=== PATIENT | female | born 1980 | race Caucasian/White ===

== ENCOUNTER 2017-04-19 12:57 | Inpatient (IN) ==
[2017-04-19] MEDS ORDERED: KETOROLAC 60 MG/2 ML VIAL IM STA (14:21)
[2017-04-19] MEDS ORDERED: KETOROLAC 60 MG/2 ML VIAL IM ONE (14:22)
[2017-04-19] MEDS ORDERED: IBUPROFEN 400 MG TABLET ONE (14:49)
[2017-04-19] MEDS ORDERED: HydrOXYzine PAMOATE 25 MG CAPSULE ONE (14:49)
[2017-04-19] MEDS ORDERED: IBUPROFEN 800 MG TABLET PO STA (14:53)
[2017-04-19] MEDS ORDERED: HydrOXYzine PAMOATE 25 MG CAPSULE PO STA (14:53)
[2017-04-19] MEDS ORDERED: BISACODYL 10 MG SUPP RECTAL PRN (15:29)
[2017-04-19] MEDS ORDERED: MAGNESIUM HYDROXIDE SUSP 30 ML UDCUP PO PRN (15:29)
[2017-04-19] MEDS ORDERED: ACETAMINOPHEN 325 MG TABLET PO PRN (15:29)
[2017-04-19] MEDS ORDERED: ONDANSETRON 4 MG/2 ML VIAL IV PRN (15:29)
[2017-04-19] MEDS ORDERED: KETOROLAC 60 MG/2 ML VIAL IM PRN (15:34)
[2017-04-19 15:44] LABS: Barbiturates Screen,Urine Negative (Negative); Benzodiazepines Screen,Urine Positive (Negative); Cannabinoid Screen,Urine Negative (Negative); Opiate Screen,Urine Positive (Negative); Phencyclidine Screen,Urine Negative (Negative)
[2017-04-19] MEDS: LACTATED RINGERS 75 ML IV SCH (17:30)
[2017-04-19] MEDS ORDERED: LACTATED RINGERS 1,000 ML IV SCH (17:53)
[2017-04-19] MEDS: KETOROLAC 30 MG/1 ML VIAL IV PRN (19:54)
[2017-04-19 20:03] LABS: Basophils % 0.1 % (0.0-0.8); Eosinophils % 0.1 % (0.00-10.9); Hematocrit 44.9 VOL% (35.7-47.0); Hemoglobin 15.6 GM/DL (12.0-16.0); Immature Granulocytes % 0.3 %; Immature Granulocytes Absolute 0.05 #; Lymphocytes # 1.7 10*3/uL (1.4-4.0); Lymphocytes % 11.7 % (21.3-54.2); Mean Corpuscular HGB Conc 34.7 GM/DL (32-36); Mean Corpuscular Hemoglobin 32 PG (27-34); Mean Corpuscular Volume 91.6 FL (87-102); Mean Platelet Volume 8.8 FL (9.6-12.0); Monocytes # 0.4 10*3/uL (0.11-0.8); Neutrophils # 12.2 10*3/uL (1.4-7.4); Neutrophils % 84.8 % (38.7-73.9); Platelet Count 412 T/CUMM (130-400); Red Cell Distribution Width 13.6 % (9.3-17.3); White Blood Count 14.4 T/CUMM (4-12)
[2017-04-19] MEDS: DOCUSATE SODIUM 100 MG CAPSULE PO SCH (20:03)
[2017-04-19 20:16] LABS: INR 0.9
[2017-04-19 20:24] LABS: Albumin 3.9 G/DL (3.4-5.0); Bilirubin,Total 0.6 MG/DL (0.2-1.0); Calcium 9.2 MG/DL (8.5-10.1); Osmolality,Calculated 266.5 MOS/KG (273-304); Total Protein 7.7 G/DL (6.4-8.3)
[2017-04-19] MEDS: IBUPROFEN 800 MG TABLET PO PRN (21:14)
[2017-04-20] MEDS: KETOROLAC 30 MG/1 ML VIAL IV PRN ×2 (01:58→08:10)
[2017-04-20] MEDS: LACTATED RINGERS 1,000 ML IV SCH ×3 (03:02→17:49)
[2017-04-20] MEDS: PANTOPRAZOLE 40 MG VIAL IV SCH (08:14)
[2017-04-20] MEDS: DOCUSATE SODIUM 100 MG CAPSULE PO SCH ×2 (10:24→20:22)
[2017-04-20] MEDS ORDERED: ALBUTEROL 2.5 MG/3 ML NEB RESP TX ONE (10:57)
[2017-04-20] MEDS ORDERED: BACITRACIN 50,000 UNIT VIAL ONE (12:25)
[2017-04-20] MEDS ORDERED: POLYMYXIN B 500,000 UNIT VIAL ONE (12:25)
[2017-04-20] MEDS ORDERED: TISSUE ADHESIVE 1 EACH APPLICATOR TOP ONE (13:00)
[2017-04-20] MEDS ORDERED: MEPERIDINE 25 MG/1 ML VIAL ONE (13:19)
[2017-04-20] MEDS ORDERED: HYDROmorphone 2 MG/1 ML VIAL ONE ×2 (13:19→13:59)
[2017-04-20] MEDS ORDERED: PROMETHAZINE 25 MG/1 ML VIAL ONE (13:20)
[2017-04-20] MEDS ORDERED: MEPERIDINE 25 MG/1 ML VIAL IV ONE ×2 (13:20→13:25)
[2017-04-20] MEDS ORDERED: PROMETHAZINE INJ 12.5 MG in SODIUM CHLORIDE 0.9% 50 ML IV ONE (13:28)
[2017-04-20] MEDS ORDERED: DESFLURANE 1 UNIT/15 MINUTE INH ONE (13:59)
[2017-04-20] MEDS ORDERED: PROPOFOL 200 MG/20 ML VIAL IV ONE (13:59)
[2017-04-20] MEDS ORDERED: SEVOFLURANE 1 UNIT/15 MINUTE INH ONE (13:59)
[2017-04-20] MEDS ORDERED: DEXAMETHASONE 10 MG/1 ML VIAL ONE (14:00)
[2017-04-20] MEDS ORDERED: GLYCOPYRROLATE 0.4 MG/2 ML VIAL ONE (14:00)
[2017-04-20] MEDS ORDERED: ROCURONIUM 100 MG/10 ML VIAL IV ONE (14:00)
[2017-04-20] MEDS ORDERED: NEOSTIGMINE 10 MG/10 ML VIAL ONE (14:00)
[2017-04-20] MEDS ORDERED: KETOROLAC 30 MG/1 ML VIAL ONE (14:00)
[2017-04-20] MEDS ORDERED: ONDANSETRON 4 MG/2 ML VIAL ONE (14:00)
[2017-04-20] MEDS ORDERED: MIDAZOLAM 2 MG/2 ML VIAL ONE (14:00)
[2017-04-20] MEDS ORDERED: LACTATED RINGERS 1,000 ML IV ONE (14:00)
[2017-04-20] MEDS ORDERED: fentaNYL 100 MCG/2 ML VIAL ONE (14:00)
[2017-04-20] MEDS: GABAPENTIN 300 MG CAPSULE PO SCH ×2 (15:57→20:22)
[2017-04-20] MEDS: OLANZapine 5 MG TABLET PO SCH (15:57)
[2017-04-20 17:36] LABS: Basophils % 0.1 % (0.0-0.8); Hematocrit 40.5 VOL% (35.7-47.0); Immature Granulocytes % 0.3 %; Immature Granulocytes Absolute 0.05 #; Lymphocytes # 0.7 10*3/uL (1.4-4.0); Lymphocytes % 4.5 % (21.3-54.2); Mean Corpuscular HGB Conc 34.6 GM/DL (32-36); Mean Corpuscular Hemoglobin 32 PG (27-34); Mean Corpuscular Volume 93.5 FL (87-102); Mean Platelet Volume 8.7 FL (9.6-12.0); Monocytes # 0.2 10*3/uL (0.11-0.8); Monocytes % 0.9 % (1.7-12.7); Neutrophils # 15.5 10*3/uL (1.4-7.4); Neutrophils % 94.2 % (38.7-73.9); Platelet Count 342 T/CUMM (130-400); Red Blood Count 4.33 MC/CUMM (3.8-5.5); Red Cell Distribution Width 13.5 % (9.3-17.3); White Blood Count 16.5 T/CUMM (4-12)
[2017-04-20] MEDS: LACTATED RINGERS 75 ML IV SCH (18:00)
[2017-04-20 19:06] LABS: Lymphocytes 3 % (20-55); Platelet Estimate Normal; Polychromasia Slight; Segmented Neutrophils 97 % (50-85); Total Cells Counted 100
[2017-04-20] MEDS: MEPERIDINE 50 MG/1 ML VIAL IM PRN (23:43)
[2017-04-21] MEDS: LACTATED RINGERS 1,000 ML IV SCH ×3 (01:54→17:07)
[2017-04-21] MEDS: MEPERIDINE 50 MG/1 ML VIAL IM PRN ×2 (04:38→10:20)
[2017-04-21] MEDS: DOCUSATE SODIUM 100 MG CAPSULE PO SCH (08:22)
[2017-04-21] MEDS: GABAPENTIN 300 MG CAPSULE PO SCH ×2 (08:23→16:06)
[2017-04-21] MEDS: PANTOPRAZOLE 40 MG VIAL IV SCH (08:23)
[2017-04-21] MEDS: OLANZapine 5 MG TABLET PO SCH (08:23)
[2017-04-21 16:04] LABS: Basophils % 0.3 % (0.0-0.8); Eosinophils % 0.4 % (0.00-10.9); Hematocrit 35.3 VOL% (35.7-47.0); Hemoglobin 12.1 GM/DL (12.0-16.0); Immature Granulocytes % 0.3 %; Immature Granulocytes Absolute 0.03 #; Lymphocytes % 35.7 % (21.3-54.2); Mean Corpuscular HGB Conc 34.3 GM/DL (32-36); Mean Corpuscular Hemoglobin 33 PG (27-34); Mean Corpuscular Volume 95.9 FL (87-102); Mean Platelet Volume 9.7 FL (9.6-12.0); Monocytes % 9.1 % (1.7-12.7); Neutrophils # 6.1 10*3/uL (1.4-7.4); Neutrophils % 54.2 % (38.7-73.9); Red Blood Count 3.68 MC/CUMM (3.8-5.5); Red Cell Distribution Width 13.9 % (9.3-17.3); White Blood Count 11.2 T/CUMM (4-12)
[2017-04-21 16:06] LABS: Platelet Count 170 T/CUMM (130-400)
[2017-04-21 16:18] LABS: Platelet Estimate Adequate
[2017-04-21 17:07] VITALS: BP 125/63
[2017-04-21] MEDS: IBUPROFEN 800 MG TABLET PO PRN (18:05)
== END 2017-04-21 18:55 | disposition home or self-care (01) | DRG 743 ==
LOC: EDBD → EDUNIT# → N.ED 12:57 → N.EDINP 15:18 → N.2E 17:00
PROVIDERS: ADMIT Obstetrics & Gynecology; ATTEND Obstetrics & Gynecology